=== PATIENT | male | born 1980 | race Caucasian/White ===

== ENCOUNTER 2020-03-12 12:56 | Emergency (ER) | payer OTHER ==
[~2020-03-12] VITALS: Ht 188 cm; Wt 115.9 kg
[2020-03-12 13:12] VITALS: Ht 188 cm; Wt 115.9 kg
[2020-03-12] MEDS ORDERED: NORVASC5 MG PO (13:16)
[2020-03-12] MEDS ORDERED: IBUPROFEN800 MG PO (13:16)
[2020-03-12] MEDS ORDERED: CYCLOBENZAPRINE10 MG PO (13:16)
[2020-03-12 14:25] LABS: BASOPHILS 0.3 % (0-2); EOSINOPHILS 4.8 % (0-7); HEMATOCRIT 40.9 % (42.0-54.0); HEMOGLOBIN 13.8 g/dL (13.5-17.5); IMMATURE GRANULOCYTES 0.6 % (0-5); MCH 30.8 pg (26.0-34.0); MCHC 33.7 g/dL (31.0-37.0); MCV 91.3 fL (80.0-100.0); MONOCYTES 8.5 % (2-11); NEUTROPHILS 67.8 % (40-80); PLATELET COUNT 302 10x3/uL (130-400); RBC 4.48 10x6/uL (4.20-6.10); RDW 13.7 % (11.5-14.5); WBC 6.5 10x3/uL (4.8-10.8)
[2020-03-12 14:28] LABS: ANION GAP 12.3 mmol/L (8-16); CALCIUM 9.6 mg/dL (8.5-10.1); CARBON DIOXIDE 26.8 mmol/L (21.0-32.0); CREATININE - SERUM 1.4 mg/dL (0.6-1.3); POTASSIUM - SERUM 4.1 mmol/L (3.5-5.1)
[2020-03-12 14:34] LABS: ALBUMIN 3.8 g/dL (3.4-5.0); BILIRUBIN - TOTAL 1.92 mg/dL (0.2-1.3); PROTEIN - SERUM 7.9 g/dL (6.4-8.2)
[2020-03-12 15:36] VITALS: BP 138/93
== END 2020-03-12 15:34 | disposition home or self-care (01) ==
LOC: D.ER 12:56
PROVIDERS: Family Medicine
DX: M79.605 Pain in left leg (principal); M79.604 Pain in right leg; S80.10XA Contusion of unspecified lower leg, initial encounter; I10 Essential (primary) hypertension; X58.XXXA Exposure to other specified factors, initial encounter